=== PATIENT | female | born 1980 | race Asian ===

== ENCOUNTER 2016-06-10 10:22 | Inpatient (IN) | payer SELFPAY ==
[~2016-06-10] VITALS: Ht 156 cm; Wt 67.1 kg
[2016-06-10] MEDS ORDERED: LACTATED RINGERS 1,000 ML IV SCH (13:29)
[2016-06-10] MEDS ORDERED: PRENATAL LOW IR1 TA1 PO (13:29)
[2016-06-10 17:09] VITALS: BP 105/69
[2016-06-10] MEDS ORDERED: MORPHINE PRES FREE 10 MG/10 ML AMP IV ONE (18:36)
[2016-06-10] MEDS ORDERED: MIDAZOLAM 2 MG/2 ML VIAL ONE (18:36)
[2016-06-10] MEDS ORDERED: BUPIVACAINE-MPF 0.75% 10 ML VIAL INJ ONE (18:40)
[2016-06-10] MEDS ORDERED: OXYTOCIN 10 UNITS/ML VIAL IM ONE (18:40)
[2016-06-10] MEDS ORDERED: TRIAMCINOLONE 40 MG/ML 5ML VIAL ONE (18:42)
[2016-06-10] MEDS ORDERED: OXYTOCIN 10 UNITS/ML VIAL ONE (18:42)
[2016-06-10] MEDS ORDERED: oxyCODONE/APAP 5/325 MG 1 TAB TAB PO PRN (18:50)
[2016-06-10] MEDS ORDERED: TRIMETHOBENZAMIDE 200 MG/2 ML SYR IM PRN (18:50)
[2016-06-10] MEDS ORDERED: TEMAZEPAM 15 MG CAP PO PRN (18:50)
[2016-06-10] MEDS ORDERED: MEASLES, MUMPS, AND RUBELLA 1 VIAL SQVAC PRN (18:50)
[2016-06-10] MEDS ORDERED: IBUPROFEN 800 MG TAB PO PRN (18:50)
[2016-06-10] MEDS ORDERED: METHYLERGONOVINE 0.2 MG/ML AMP IM PRN (18:50)
[2016-06-10] MEDS ORDERED: diphenhydrAMINE 50 MG/ML VIAL IVP PRN ×2 (19:10)
[2016-06-10] MEDS ORDERED: ONDANSETRON 4 MG/2 ML VIAL IVP PRN ×2 (19:10)
[2016-06-10] MEDS ORDERED: OXYTOCIN 20 UNITS/LR PREMIX 1,000 ML IV SCH (19:10)
[2016-06-10] MEDS ORDERED: NALOXONE 0.4 MG/ML VIAL IVP PRN ×3 (19:10)
[2016-06-10] MEDS ORDERED: MEPERIDINE 25 MG/ML SYR IVP PRN (19:10)
[2016-06-10] MEDS ORDERED: NALBUPHINE 10 MG/ML AMP IVP PRN (19:10)
[2016-06-10] MEDS ORDERED: HYDROmorphone 1 MG/ML AMP IVP PRN (19:10)
[2016-06-10] MEDS: OXYTOCIN 20 UNITS/LR PREMIX 1,000 ML IV SCH (19:54)
[2016-06-10] MEDS: DOCUSATE SOD/SENNA 50/8.6 MG 1 TAB PO SCH (20:56)
[2016-06-10] MEDS: SIMETHICONE 80 MG TAB.CHEW PO PRN (20:58)
[2016-06-10] MEDS ORDERED: INFLUENZA VIRUS VACCINE QUAD 0.5 ML SYR IMVAC SCH (22:00)
[2016-06-10] MEDS: KETOROLAC 30 MG/ML VIAL IM/IVP SCH (23:55)
[2016-06-11] MEDS: OXYTOCIN 20 UNITS/LR PREMIX 1,000 ML IV SCH ×2 (01:57→11:28)
[2016-06-11] MEDS: KETOROLAC 30 MG/ML VIAL IM/IVP SCH ×3 (05:54→17:40)
[2016-06-11] MEDS: SIMETHICONE 80 MG TAB.CHEW PO PRN (11:28)
[2016-06-11] MEDS ORDERED: AMOXICILLIN 500 MG CAP ONE ×2 (21:36→22:11)
[2016-06-11] MEDS: DOCUSATE SOD/SENNA 50/8.6 MG 1 TAB PO SCH (21:40)
[2016-06-11] MEDS: AMOXICILLIN 500 MG CAP PO SCH (23:27)
[2016-06-12] MEDS ORDERED: AMPICILLIN 500 MG CAP PO SCH
[2016-06-12] MEDS: AMOXICILLIN 500 MG CAP PO SCH ×3 (05:45→18:24)
[2016-06-12] MEDS ORDERED: AMOXICILLIN 500 MG CAP ONE (05:45)
--- NOTE | 2016-06-12 09:18 | NUR ---
PATIENT HAS BEEN SCREENED AND CATEGORIZED LOW NUTRITION RISK. PATIENT WILL BE SEEN WITHIN 7 DAYS OF ADMISSION. 06/17/[address]
[2016-06-12] MEDS: HYDROcodone/APAP 5/325 MG 1 TAB TAB PO PRN ×2 (12:05→18:23)
[2016-06-12] MEDS: SIMETHICONE 80 MG TAB.CHEW PO PRN (12:05)
[2016-06-12] MEDS: DOCUSATE SOD/SENNA 50/8.6 MG 1 TAB PO SCH (20:47)
[2016-06-13] MEDS: AMOXICILLIN 500 MG CAP PO SCH ×2 (00:04→06:06)
== END 2016-06-13 18:06 | disposition home or self-care (01) | DRG 766 ==
LOC: MLD 12:50 → MFCC 19:29
PROVIDERS: ADMIT Obstetrics & Gynecology; ATTEND Obstetrics & Gynecology
PROC: 10D00Z1 Extraction of Products of Conception, Low, Open Approach (ICD-10-PCS; principal; 2016-06-10 18:30)
PROC: 3E0234Z Introduction of Serum, Toxoid and Vaccine into Muscle, Percutaneous Approach (ICD-10-PCS; 2016-06-11)
DX: O34.211 Maternal care for low transverse scar from previous cesarean delivery (principal); O09.523 Supervision of elderly multigravida, third trimester; O09.293 Supervision of pregnancy with other poor reproductive or obstetric history, third trimester; Z37.0 Single live birth; Z3A.38 38 weeks gestation of pregnancy; Z82.49 Family history of ischemic heart disease and other diseases of the circulatory system; Z23 Encounter for immunization